=== PATIENT | female | born 1955 | race American Indian/Alaskan Native ===

== ENCOUNTER 2017-11-30 06:18 | Emergency (ER) | payer BC ==
--- NOTE | 2017-11-30 10:21 | Emergency Department Report ---
Blank Doc - Documentation Documentation: Patient is a 61-year-old female with 3 days of cough, congestion and watery eyes. Patient states she is coughing up yellowish clear sputum. Patient also states she has some left-sided side and back discomfort with cough. Patient denies any pleurisy. Patient also denies any syncope at this time. Patient because of her symptoms we'll get a chest x-ray to rule out pneumonia and patient will be monitored and followed with [facility]LP thank you
--- NOTE | 2017-11-30 10:56 | XRay Report ---
CHEST 2 VIEWS INDICATION: Cough. COMPARISON: None similar. FINDINGS: Frontal and lateral chest radiographs demonstrate borderline cardiomegaly. Mild bibasilar possible scarring. No pleural effusions or CHF. Left-sided [place] radha with its proximal hook at approximately T5 or T6 level. CONCLUSION: No acute significant chest process, as described. Thank you for the opportunity to participate in this patient's care.
--- NOTE | 2017-11-30 11:42 | Emergency Department Report ---
- General Chief Complaint: Dyspnea/Respdistress Stated Complaint: URI SX Time Seen by Provider: 11/30/17 10:17 Source: patient Mode of arrival: Ambulatory Limitations: No Limitations - History of Present Illness Initial Comments: This is a 61-year-old female nontoxic, well nourished in appearance, no acute signs of distress presents to the ED with c/o of productive cough, rhinorrhea, watery eyes, nasal congestion x3 days. Patient describes productive cough as yellow mucus production. Patient denies any sick contact. Patient denies any recent travels, long car, recent hospital stays. Patient denies any calf pain or calf tenderness. Patient denies any chest pain, short of breath, fever, chills, nausea, vomiting, hemoptysis, numbness, tingling, headache or stiff neck. Patient denies any allergies.m PMH includes HTN. MD Complaint: cough, rhinorrhea, nasal congestion, other (watery eyes) -: days(s) (3) Severity: mild Severity scale (0 -10): 0 Consistency: constant Improves With: nothing Worsens With: nothing Associated Symptoms: rhinorrhea, nasal congestion, cough. denies: fever, chills , myalgias, diaphoresis, headache, sore throat, stiff neck, chest pain, shortness of breath, abdominal pain, nausea, vomiting, diarrhea, dysuria, rash, confusion, right sweats, weight loss, epistaxis, hoarseness, ear pain Treatments Prior to Arrival: none - Related Data Previous Rx's Medication Instructions Recorded Last Taken Type ALBUTEROL Inhaler [ProAir HFA 2 puff IH QID PRN #1 inhalation 11/30/17 Unknown Rx Inhaler] Azithromycin [Zithromax Z-TEODORO] 250 mg PO DAILY #6 tablet 11/30/17 Unknown Rx Benzonatate [Tessalon Perle] 100 mg PO Q8H PRN #30 capsule 11/30/17 Unknown Rx Loratadine [Claritin] 10 mg PO DAILY #30 tablet 11/30/17 Unknown Rx predniSONE [Deltasone] 40 mg PO QDAY #5 tab 11/30/17 Unknown Rx Allergies Allergy/AdvReac Type Severity Reaction Status Date / Time No Known Allergies Allergy Unverified 07/10/14 08:08 ED Review of Systems ROS: Stated complaint: URI SX Other details as noted in HPI Constitutional: denies: chills, fever Eyes: denies: eye pain, eye discharge, vision change ENT: denies: ear pain, throat pain Respiratory: cough. denies: shortness of breath, wheezing Cardiovascular: denies: chest pain, palpitations Endocrine: no symptoms reported Gastrointestinal: denies: abdominal pain, nausea, diarrhea Genitourinary: denies: urgency, dysuria, discharge Musculoskeletal: denies: back pain, joint swelling, arthralgia Skin: denies: rash, lesions Neurological: denies: headache, weakness, paresthesias Psychiatric: denies: anxiety, depression Hematological/Lymphatic: denies: easy bleeding, easy bruising ED Past Medical Hx - Past Medical History Hx Hypertension: Yes Additional medical history: HYPOTHYROIDISM - Surgical History Past Surgical History?: No - Social History Smoking Status: Never Smoker Substance Use Type: None - Medications Home Medications: Home Medications Medication Instructions Recorded Confirmed Last Taken Type ALBUTEROL Inhaler [ProAir HFA 2 puff IH QID PRN #1 inhalation 11/30/17 Unknown Rx Inhaler] Azithromycin [Zithromax Z-TEODORO] 250 mg PO DAILY #6 tablet 11/30/17 Unknown Rx Benzonatate [Tessalon Perle] 100 mg PO Q8H PRN #30 capsule 11/30/17 Unknown Rx Loratadine [Claritin] 10 mg PO DAILY #30 tablet 11/30/17 Unknown Rx predniSONE [Deltasone] 40 mg PO QDAY #5 tab 11/30/17 Unknown Rx ED Physical Exam - General Limitations: No Limitations General appearance: alert, in no apparent distress - Head Head exam: Present: atraumatic, normocephalic - Eye Eye exam: Present: normal appearance Pupils: Present: normal accommodation - ENT ENT exam: Present: normal exam, normal orophraynx, mucous membranes moist, TM's normal bilaterally, normal external ear exam - Neck Neck exam: Present: normal inspection, full ROM. Absent: tenderness, meningismus, lymphadenopathy, thyromegaly - Respiratory Respiratory exam: Present: normal lung sounds bilaterally. Absent: respiratory distress, wheezes, rales, rhonchi, stridor, chest wall tenderness, accessory muscle use, decreased breath sounds, prolonged expiratory - Cardiovascular Cardiovascular Exam: Present: regular rate, normal rhythm, normal heart sounds. Absent: irregular rhythm, systolic murmur, diastolic murmur, rubs, gallop - GI/Abdominal GI/Abdominal exam: Present: soft, normal bowel sounds. Absent: distended, tenderness, guarding, rebound, rigid, diminished bowel sounds - Rectal Rectal exam: Present: deferred - Extremities Exam Extremities exam: Present: normal inspection, full ROM, normal capillary refill. Absent: tenderness, pedal edema, joint swelling, calf tenderness - Back Exam Back exam: Present: normal inspection, full ROM. Absent: tenderness, CVA tenderness (R), CVA tenderness (L), muscle spasm, paraspinal tenderness, vertebral tenderness, rash noted - Neurological Exam Neurological exam: Present: alert, oriented X3, CN II-XII intact, normal gait, reflexes normal - Psychiatric Psychiatric exam: Present: normal affect, normal mood - Skin Skin exam: Present: warm, dry, intact, normal color. Absent: rash ED Course Vital Signs 11/30/17 06:23 Temperature 98.8 F Pulse Rate 103 H Respiratory 18 Rate Blood Pressure 155/88 O2 Sat by Pulse 98 Oximetry - Reevaluation(s) Reevaluation #1: 11/30/17 11:45 Patient is speaking in full sentences with no signs of distress noted. - Consultations Consultation #1: 11/30/17 11:52 Patient has been consulted with Dr. Gonzalez about patient history, physical exam , and labs and examined and screened patient and agrees to ED plan of care and discharge plan of care. ED Medical Decision Making - Medical Decision Making This is a 61-year-old female that presents with URI vs. Bronchitis. Patient is stable and was examined by mn and Dr. Gonzalez. Chest x-ray has been obtained and dictated by radiologist with normal exam. Patient is notified of x-ray results with no questions noted. Wells criteria 0 points. Due to patient having symptoms of upper respiratory infection and worsening I will treat patient empirically zpak. Vitals stable. Patient is nonfebrile and normal heart rate. Patient was instructed Follow-up with a primary care doctor in 3-5 days or if symptoms worsen and continue return to emergency room as soon as possible. At time time of discharge, the patient does not seem toxic or ill in appearance. No acute signs of distress noted. Patient agrees to discharge treatment plan of care. No further questions noted by the patient. - Differential Diagnosis URI, PNA, bronchitis Critical care attestation.: If time is entered above; I have spent that time in minutes in the direct care of this critically ill patient, excluding procedure time. ED Disposition Clinical Impression: Bronchitis Upper respiratory infection Qualifiers: URI type: unspecified URI Qualified Code(s): J06.9 - Acute upper respiratory infection, unspecified Disposition: DC- TO HOME OR SELFCARE Is pt being admited?: No Does the pt Need Aspirin: No Condition: Stable Instructions: Upper Respiratory Infection (ED), Chronic Bronchitis (ED) Additional Instructions: Follow-up with a primary care doctor in 3-5 days or if symptoms worsen and continue return to emergency room as soon as possible. Prescriptions: ALBUTEROL Inhaler [ProAir HFA Inhaler] 2 puff IH QID PRN #1 inhalation PRN Reason: Shortness Of Breath Azithromycin [Zithromax Z-TEODORO] 250 mg PO DAILY #6 tablet Benzonatate [Tessalon Perle] 100 mg PO Q8H PRN #30 capsule PRN Reason: Cough Loratadine [Claritin] 10 mg PO DAILY #30 tablet predniSONE [Deltasone] 40 mg PO QDAY #5 tab Referrals: PRIMARY CAREMD [Primary Care Provider] - 3-5 Days LENORA MACKAY MD [Staff Physician] - 3-5 Days [facility] [Outside] - 3-5 Days [facility] [Outside] - 3-5 Days Forms: Work/School Release Form(ED)
[2017-11-30 12:14] VITALS: BP 148/86
== END 2017-11-30 12:05 | disposition home or self-care (01) ==
LOC: ED 06:18
DX: J40 Bronchitis, not specified as acute or chronic (principal); J06.9 Acute upper respiratory infection, unspecified; I10 Essential (primary) hypertension
CPT/HCPCS: 71046; 99283